=== PATIENT | female | born 1985 | race Caucasian/White ===

== ENCOUNTER 2017-05-22 10:42 | Emergency (ER) | payer MEDICAID ==
[~2017-05-22] VITALS: Ht 157.5 cm; Wt 68.2 kg
[2017-05-22 10:44] VITALS: Ht 157.5 cm; Wt 68.2 kg
--- NOTE | 2017-05-22 15:39 | RADRPT ---
PROCEDURE: BREAST ULTRASOUND CLINICAL INDICATION: 32 year-old female with nipple retraction and breast tenderness. TECHNIQUE: Ultrasound of the whole right breast and axilla is completed. COMPARISON: None. FINDINGS: The ultrasound of the right breast is unremarkable. No cystic or solid mass is identified. There is no suspicious axillary adenopathy. IMPRESSION: Unremarkable right breast ultrasound. Recommend outpatient breast MRI for further evaluation of the right nipple retraction. BIRADS 0 (INCOMPLETE- -NEED ADDITIONAL IMAGING EVALUATION) Patient will be entered into reminder system for immediate follow-up imaging RPTAT: UU .Paul Allen MD, Date Time Electronically viewed and signed by .Paul Allen MD, on 05/22/2017 15:39 .Z/
[2017-05-22] MEDS ORDERED: IBUP-1542 PO (15:46)
--- NOTE | 2017-05-22 16:03 | ERD ---
ER Documentation Chief Complaint Chief Complaint right breast pain x 4 days HPI 32-year-old female complaining of right breast tenderness 4 days. Patient stated that she felt a tender mass in her right breast. No pain at rest, she only has pain when she is palpating the mass. She reports chills, but denies fever. Patient is not currently breast-feeding. Her LMP was 04/22/2017. Patient stated that she recently came here from [facility]. While in [facility] she was evaluated for breast mass, and obtain a mammogram. She was told mass was normal. Patient stated that her right nipple has been inverted all her life. Denies nipple discharge. Denies any unexplained weight loss. ROS All systems reviewed and are negative except as per history of present illness. Medications Home Meds Active Scripts Ibuprofen* (Motrin*) 600 Mg Tab, 600 MG PO Q6H Y for PAIN AND OR ELEVATED TEMP, #30 TAB Prov:PATRICIA RYAN Porsha B[employer] AND FURNACE MANAGER 05/22/17 PMhx/Soc Medical and Surgical Hx: pt denies Medical Hx Hx Alcohol Use: No Hx Substance Use: No Hx Tobacco Use: No Physical Exam Vitals Vital Signs Date Time Temp Pulse Resp B/P Pulse Ox O2 Delivery O2 Flow Rate FiO2 05/22/17 10:44 98.5 77 18 110/54 99 Physical Exam General: Well-developed, well-nourished, conscious and coherent, in no distress Skin: Warm and dry without rash, good texture and turgor Head: Normocephalic without evidence of trauma Eyes: Sclera and conjunctivae normal; pupils equal, round, and reactive to light; extraocular movements are intact Chest: Normal AP diameter. Good expansion without retractions. Nontender. Lungs are clear to auscultate bilaterally with good tidal volume Heart: Regular rate and rhythm. No murmur, rub, or gallops heard Breast: Left breast normal. Right breast nipple inverted. There is a 2 cm x 4 cm firm, mobile, tender mass in the right breast, immediately adjacent to the nipple, occupying 9:00 to 12 o'clock position. No palpable lymph nodes in the bilateral axillae. Extremities: Full range of motion. Good strength bilaterally. No clubbing, cyanosis, or edema. Peripheral pulses are intact. Sensation intact Neuro: Alert and oriented 4, GCS 15. Cranial nerves grossly intact. Motor and sensory exams nonfocal. Moves all extremities. Speech clear. Gait normal Results 24 hrs PROCEDURE: BREAST ULTRASOUND CLINICAL INDICATION: 32 year-old female with nipple retraction and breast tenderness. TECHNIQUE: Ultrasound of the whole right breast and axilla is completed. COMPARISON: None. FINDINGS: The ultrasound of the right breast is unremarkable. No cystic or solid mass is identified. There is no suspicious axillary adenopathy. IMPRESSION: Unremarkable right breast ultrasound. Recommend outpatient breast MRI for further evaluation of the right nipple retraction. BIRADS 0 (INCOMPLETE- -NEED ADDITIONAL IMAGING EVALUATION) Patient will be entered into reminder system for immediate follow-up imaging RPTAT: UU .Paul Allen MD, MD Date Time Electronically viewed and signed by .Paul Allen MD, on 05/22/2017 15:39 .Z/ CC: PATRICIA RYAN. BATCH AND FURNACE MANAGER Procedures/MDM Well-appearing 32-year-old female presented ED with tender mass in the right breast. Ultrasound of the right breast is unremarkable. I have low suspicion for breast cancer at this time. However, patient will need to be followed up for further evaluation. Patient is given referral to community clinics and [facility]'s for follow-up. Patient appears well, stable for discharge and outpatient management. Medical decision making shared with patient and family. Education provided to patient and family. Patient and family expressed understanding of the plan. Medications on discharge: Ibuprofen. Follow-up: Primary care provider in 2-3 days or return to ED if worse. Disclaimer: Inadvertent spelling and grammatical errors are likely due to EHR/ dictation software use and do not reflect on the overall quality of patient care. Also, please note that the electronic time recorded on this note does not necessarily reflect the actual time of the patient encounter. Departure Diagnosis: Primary Impression: Breast pain Condition: Stable Patient Instructions: Breast Self-Exam (BSE), Breast Health: Normal Breast Changes Referrals: [facility] Usted se manrique hecho un examen mdico de control que le indica que no est en audrey condicin que requiera tratamiento urgente en el Departamento de Emergencia. Un estudio ms profundo y el tratamiento de israel condicin pueden esperar sin ningn riesgo hasta que usted sea atendida/o en el consultorio de israel mdico o audrey cl bud. Es responsabilidad suya arreglar audrey ronnie para el seguimiento del tati. MANEJO DE CONDICIONES NO URGENTES EN EL FUTURO 1) Si usted tiene un mdico de atencin primaria: Usted debera llamar a israel mdico de atencin primaria antes de venir al departamento de emergencia. Despus de las horas de consultorio, israel doctor o israel asociado/a est disponible por telfono. El mdico o enfermero de alexis en el servicio telefnico puede asesorarle por maria teresa medio para atender el problema, o tati contrario se puede programar audrey ronnie. 2) Si usted no tiene un mdico de atencin primaria: Llame al mdico o clnica de referencia que aparece abajo jennifer las horas de consultorio para hacer audrey ronnie para que le vean. CLINICAS: [facility] [phone] [address] [facility] [phone] [address] [facility] [phone] [facility] [place] [id number] [phone] [facility] [place] [id number] [phone] [facility]. [phone] [facility] () Usted se manrique hecho un examen mdico de control que le indica que no est en audrey condicin que requiera tratamiento urgente en el Departamento de Emergencia. Un estudio ms profundo y el tratamiento de israel condicin pueden esperar sin ningn riesgo hasta que usted sea atendida/o en el consultorio de israel mdico o audrey cl bud. Es responsabilidad suya arreglar audrey ronnie para el seguimiento del tati. MANEJO DE CONDICIONES NO URGENTES EN EL FUTURO 1) Si usted tiene un mdico de atencin primaria: Usted debera llamar a israel mdico de atencin primaria antes de venir al departamento de emergencia. Despus de las horas de consultorio, israel doctor o israel asociado/a est disponible por telfono. El mdico o enfermero de alexis en el servicio telefnico puede asesorarle por maria teresa medio para atender el problema, o tati contrario se puede programar audrey ronnie. 2) Si usted no tiene un mdico de atencin primaria: Llame al mdico o condado institucions de referencia que aparece abajo jennifer las horas de consultorio para hacer audrey ronnie para que le vean. SI USTED NO PUEDE PAGAR PARA SOLEDAD UN MEDICO puede ir a: [facility] [address] [place] [address] [facility] [address] [place] [address] [facility] [address] [place] [address] PARA [facility] [address] [place] [address] Additional Instructions: Llame al doctor nombrado abajo (Referral Sources) MAANA y grace audrey RONNIE PARA DENTRO DE UN mes. Dgale a la secretaria que nosotros le instruimos hacer esta ronnie.Avise o llame si israel condicin se empeora antes de la ronnie. PATRICIA RYAN NP May 22, 2017 16:03
== END 2017-05-22 16:15 | disposition home or self-care (01) ==
LOC: FTE 10:42
DX: N64.4 Mastodynia (principal)
CPT/HCPCS: 76642

== ENCOUNTER 2017-11-28 18:03 | Observation (INO) | END 2017-11-29 17:30 | disposition home or self-care (01) ==

== ENCOUNTER 2018-01-16 08:07 | Inpatient (IN) | END 2018-01-19 14:20 | disposition home or self-care (01) | DRG 766 ==